=== PATIENT | male | born 1975 | race Hispanic/Latino ===

== ENCOUNTER 2020-05-08 14:47 | Emergency (ER) | payer BC ==
--- OUTSIDE RECORDS SUMMARY | 2020-05-08 16:42 | XMS REPORT | Continuity of Care Document ---
:1975 Author Organization [facility] t Address [address] [place] [address] Care Team Providers Name Role Phone Unavailable Unavailable Unavailable Problems This patient has no known problems. Allergies, Adverse Reactions, Alerts Allergy Allergy Status Severity Reaction(s) Onset Inactive Treating Comm ents Source Name Type Date Date Clinician Aspirin Adverse Active Info Not [facility] Medications Ordered Filled Start Stop Current Ordering Indication Dosage Frequency Signature Comments Components Source Medication Medication Date Date Medication? Clinician (SIG) Name Name Tamiflu Tamiflu Yes Esteban [address] [facility] Azithromyci Azithromyci 2020- No Esteban [address] [facility] 3-06 03-11 [facility] first day, [facility] 00 :00 then 1 l tablet Outpati daily for ent 4 days Clinics Immunizations Ordered Filled Immunization Date Status Comments Sourc e Immunization Name Name TDAP > 7 TDAP > 7 2019-10-[address] [facility] - Years-Adacel Years-Adacel 00:00:00 [facility] Procedures This patient has no known procedures. Encounters Start End Encounter Admission Attending Care Care Encounter Source Date/Time Date/Time Type Type Clinicians Facility Department ID 2020-05-07 2020-05-07 Outpatient [facility] [id number] [facility] 2020-05-07 2020-05-07 Outpatient [facility] [id number] [facility] Clinics 2020-02-14 2020-02-14 [facility] [id number] [facility] 15[facility] 15[facility]00[facility]00 [facility] 2019-11-06 2019-11-06 [facility] [id number] 15[facility]15[facility]00 15:15:00 [facility] 2019-10-23 2019-10-23 [facility] [id number] 15:30[facility]00 15:30:00 [facility] 2019-09-21 2019-09-21 [facility] [id number] 10:15[facility]00 10:15:00 [facility] Results This patient has no known results.
--- OUTSIDE RECORDS SUMMARY | 2020-05-08 16:42 | XMS REPORT ---
:1975 Author Organization [facility] Address [address] [place] [address] Care Team Providers Name Role Phone Henry Unavailable [phone] PROBLEMS Type Condition ICD9-CM COA53-DN Onset Condition SNOMED Code Notes Code Code Dates Status Problem Mixed E78.2 Active 626520440 hyperlipidemia ALLERGIES Allergen (clinical drug Drug/Non Drug Allergy Reaction Allergy Type Onset Date Status ingredient) documented on EMR aspirin Aspirin([facility][NOTE 2] Unknown Drug Allergy Active Code:[address]-94) ENCOUNTERS from 1975 to 2020-05-07 Encounter Location Date Provider Diagnosis [address] [facility] [address], [place] [address] IMMUNIZATIONS Vaccine Route Administration Date Status Adacel (Tdap) IM Intramuscular October 23, 2019 Administered Kenalog (Triamcinolone) IM Intramuscular September 21, 2019 Adminis tered SOCIAL HISTORY Tobacco Use: Social History Observation Description Date Details (start date - stop date) Never Smoker Sex Assigned At : Social History Observation Description Sex Assigned At Unknown Alcohol Screen Question Answer Notes Did you have a drink containing alcohol in the past Yes year? Points 1 Interpretation Negative How often did you have a drink containing alcohol in Monthly or less (1 point) the past year? Tobacco Use/Smoking Question Answer Notes Are you a never smoker REASON FOR REFERRAL No Information VITAL SIGNS No information MEDICATIONS No Information PROCEDURES No Information RESULTS No Results REASON FOR VISIT Sick MEDICAL (GENERAL) HISTORY Type Description Date Surgical History No Surgical history information Goals Section No Information Health Concerns No Information MEDICAL EQUIPMENT No Information MENTAL STATUS No Information FUNCTIONAL STATUS No Information ASSESSMENTS No Information PLAN OF TREATMENT Next Appt Details Provider Name:Esteban Henry, 2020-05-08 0 9:45:00 AM, [address], [place], [address], Provider Name:Esteban Henry, 2020-05-15 0 3:00:00 PM, [address], [place], [address], Insurance Providers Payer Name Payer Payer Insured Name Patient Coverage Covera End Address Phone Relationship to Start Date Davis e Insured [employer] [phone] David Smith self 2019 and Blue [id number] [address] [place] [id number]
--- OUTSIDE RECORDS SUMMARY | 2020-05-08 16:42 | XMS REPORT ---
:1975 Author Organization [facility] Address [address], [address] [place] [address] Care Team Providers Name Role Phone Henry Unavailable [phone] PROBLEMS Type Condition ICD9-CM MDX29-OD Onset Condition SNOMED Code Notes Code Code Dates Status Problem Mixed E78.2 Active [id number] hyperlipidemia ALLERGIES Allergen (clinical drug Drug/Non Drug Allergy Reaction Allergy Type Onset Date Status ingredient) documented on EMR aspirin Aspirin([facility] Unknown Drug Allergy Active Code:[address]-28) ENCOUNTERS from 1975 to 2020-05-07 Encounter Location Date Provider Diagnosis [facility] [address] [facility] Apr, [facility] Henry Maggie rrhea, unspecified Family Medicine [address], type R1 9.7 ; [place] [address] unspecified fe daisha cause R50.9 and Generalized abd ominal pain R10.84 IMMUNIZATIONS Vaccine Route Administration Date Status Adacel [...] REASON FOR REFERRAL No Information VITAL SIGNS Height 71 in Apr, Weight 225 lbs Apr, BMI 31.38 kg/m2 Apr, MEDICATIONS No Information PROCEDURES No Information RESULTS No Results REASON FOR VISIT stomach pain, fever, and diarrhea MEDICAL (GENERAL) HISTORY Type Description Date Surgical History No Surgical history information Goals Section No Information Health Concerns No Information MEDICAL EQUIPMENT No Information MENTAL STATUS No Information FUNCTIONAL STATUS No Information ASSESSMENTS Encounter Date Diagnosis Notes Apr, Generalized abdominal pain (ICD-10 - R10 .84) Apr, Fever, unspecified fever cause (ICD-10 - R50.9) Apr, Diarrhea, unspecified type (ICD-10 - R19 .7) PLAN OF TREATMENT Treatment Notes Assessment Notes Clinical Notes Diarrhea, unspecified type Discussed differential diagnosis with patient. Education given. Discussed supportive measures for symptomatic relief. Advance diet as tolerated. Using nnuh-nur-eolvxia medication. Tolerating well. Denies any bloody stool. Strongly encouraged to increase hydration and electrolytes. Fever, unspecified fever cause . Discussed differential maggie gnosis with patient. Education given. Discussed supportive measures for symptomatic relief. Okay to use cowa-ldy-cuctgkj medication. Monitor temperature. Improving overall. Generalized abdominal pain . Discussed differential diagnos is with patient peer education given. Improving gradually Next Appt Details prn Reason: Provider Name:Esteban Carl 2020-05-08 0 9:45:00 AM, [address], [place], [address], Provider Name:Esteban Henry 2020-05-15 0 3:00:00 PM, [address], [place], [address], Insurance Providers Payer Name Payer Payer Insured Name Patient Coverage Covera End Address Phone Relationship to Start Date Davis e Insured [employer] [phone] David Smith self 2019 and Blue [id number] [address] [place] [id number]
--- OUTSIDE RECORDS SUMMARY | 2020-05-08 16:42 | XMS REPORT ---
:1975 Author Organization [employer] Care Team Providers Name Role Phone Henry, [facility] Provider Role Unavailable Allergies, Adverse Reactions, Alerts Substance Reaction Event Type Aspirin Info Not Available Drug Allergy Problems Problem Type Condition Code Onset Dates Condition Statu s Assessment Prediabetes R73.03 Active Problem Mixed hyperlipidemia E78.2 Active Assessment Nonintractable headache, unspecified R51 Active chronicity pattern, unspecified headache type Assessment Mixed hyperlipidemia E78.2 Active Assessment Elevated LFTs R79.89 Active Medications No Known Medications Results No Known Results Summary Purpose [employer] Submission
[2020-05-08] MEDS ORDERED: NA CHLORIDE 0.9% 1,000 ML ONE (18:21)
[2020-05-08] MEDS ORDERED: ACETAMINOPHEN 500 MG TAB ONE (18:28)
--- NOTE | 2020-05-08 19:13 | RAD REPORT ---
EXAM DESCRIPTION: CTAbdomen Pelvis W Contrast - 05/08/2020 7:00 pm CLINICAL HISTORY: Abdominal pain. abdominal pain, diarrhea COMPARISON: No comparisons TECHNIQUE: Biphasic CT imaging of the abdomen and pelvis was performed with 100 ml non-ionic IV cont rast. All CT scans are performed using dose optimization technique as appropriate and may include automated exposure control or mA/KV adjustment according to patient size. FINDINGS: The lung bases are clear. The liver, spleen, pancreas, adrenal glands and kidneys are within normal limits. No bowel obstruction, free air, free fluid or abscess. Inflammation is seen around the colon particul juwan the descending colon rectosigmoid colon. The appendix is normal. Small fat containing. No eviden ce of significant lymphadenopathy. No suspicious bony findings. IMPRESSION: Mild colitis is seen involving predominately the descending colon and rectosigmoid colon .
--- NOTE | 2020-05-08 19:21 | EDPHYS ---
Physician Documentation [facility] Name: Bladimir Smith Age: 45 yrs Sex: Male : 1975 Arrival Date: 05/08/2020 Time: 14:50 Bed 17 Private MD: ED Physician Papo Rubio HPI: 05/08 17:04 This 45 yrs old Male presents to ER via Ambulatory with complaints of jmm Abdominal Pain. 17:04 The patient presents with abdominal pain in the lower abdomen. Onset: The jmm symptoms/episode began/occurred gradually, 2 day(s) ago. The symptoms do not radiate. Associated signs and symptoms: Pertinent positives: diarrhea. The symptoms are described as crampy. This is a 45 year old male with no chronic medical conditions that presents to the ED with complaints of abdominal pain and multiple episodes of bloody watery diarrhea. Denies recent abx use, denies recent travel, denies infectious exposure. . Historical: - Allergies: 14:58 Aspirin; hb - Home Meds: 14:58 None [Active]; hb - PMHx: 14:58 None; hb - PSHx: 14:58 None; hb - Immunization history:: Adult Immunizations up to date. - Social history:: Smoking status: Patient denies any tobacco usage or history of. ROS: 17:04 Constitutional: Negative for fever, chills, and weight loss, Cardiovascular: Negative jmm for chest pain, palpitations, and edema, Respiratory: Negative for shortness of breath, cough, wheezing, and pleuritic chest pain. 17:04 Abdomen/GI: Positive for abdominal pain, diarrhea. 17:04 All other systems are negative. Exam: 17:04 Constitutional: This is a well developed, well nourished patient who is awake, alert, jmm and in no acute distress. Head/Face: atraumatic. Eyes: EOMI, no conjunctival erythema appreciated ENT: Moist Mucus Membranes Neck: Trachea midline, Supple Chest/axilla: Normal chest wall appearance and motion. Cardiovascular: Regular rate and rhythm. No edema appreciated Respiratory: Normal respirations, no respiratory distress appreciated Abdomen/GI: Non distended, soft Back: Normal ROM Skin: General appearance color normal MS/ Extremity: Moves all extremities, no obvious deformities appreciated, no edema noted to the lower extremities Neuro: Awake and alert, normal gait Psych: Behavior is normal, Mood is normal, Patient is cooperative and pleasant Vital Signs: 14:56 BP 170 / 91; Pulse 82; Resp 16; Temp 99; Pulse Ox 100% on R/A; Weight 102.06 kg; Height hb 5 ft. 11 in. (180.34 cm); Pain 7/10; 17:55 BP 98 / 77; Pulse 84; Resp 16; Temp 102.6(O); Pulse Ox 97% on R/A; mh5 18:52 BP 128 / 84; Pulse 81; Resp 16; Pulse Ox 98% ; bp 20:11 Temp 99.7(TE); dm5 14:56 Body Mass Index 31.38 (102.06 kg, 180.34 cm) hb MDM: 16:50 Patient medically screened. [facility] 19:19 Data reviewed: vital signs, nurses notes. Counseling: I had a detailed discussion with blu the patient and/or guardian regarding: the historical points, exam findings, and any diagnostic results supporting the discharge/admit diagnosis, lab results, radiology results, the need for outpatient follow up, to return to the emergency department if symptoms worsen or persist or if there are any questions or concerns that arise at home. ED course: Patient is alert and non toxic in appearance in the ED. Patient is advised to follow up with pcp and otherwise given strict return precautions. Patient understood and agrees with the plan of care. . 05/08 17:04 Order name: Basic Metabolic Panel; Complete Time: 09:16 [facility] 05/08 17:04 Order name: CBC with Diff; Complete Time: 09:16 [facility] 05/08 17:04 Order name: Hepatic Function; Complete Time: 09:16 [facility] 05/08 17:04 Order name: Lipase; Complete Time: 09:16 [facility] 05/08 17:44 Order name: Stool Culture bp 05/08 17:04 Order name: IV Saline Lock; Complete Time: 17:44 [facility] 05/08 17:04 Order name: CT Abd/Pelvis - IV Contrast Only; Complete Time: 19:18 [facility] 05/08 17:44 Order name: Fecal Leukocyte Stain; Complete Time: 09:16 bp 05/08 17:04 Order name: Labs collected and sent; Complete Time: 17:44 [facility] 05/08 18:56 Order name: Labs - recollect needed; Complete Time: :22 aa5 Administered Medications: 17:30 Drug: NS 0.9% 1000 ml Route: IV; Rate: 1 bolus; Site: right forearm; bp 18:15 Drug: Tylenol 1000 mg Route: PO; bp 18:19 CANCELLED (Duplicate Order): Tylenol 1000 mg PO once bp 19:30 Drug: Cipro 500 mg Route: PO; dm5 20:15 Follow up: Response: No adverse reaction; No change in condition dm5 19:30 Drug: Flagyl 500 mg Route: PO; dm5 20:16 Follow up: Response: No adverse reaction; No change in condition dm5 Disposition: 05/09 14:33 Co-signature as Attending Physician, Papo Rubio MD I agree with the assessment and kdr plan of care. Disposition: 05/08/20 19:20 Discharged to Home. Impression: Acute Colitis. - Condition is Stable. - Discharge Instructions: Colitis. - Prescriptions for Flagyl 500 mg Oral Tablet - take 1 tablet by ORAL route every 8 hours for 10 days; 30 tablet. Cipro 500 mg Oral Tablet - take 1 tablet by ORAL route every 12 hours for 7 days; 20 tablet. - Medication Reconciliation Form, Thank You Letter, Antibiotic Education, Prescription Opioid Use form. - Follow up: Private Physician; When: 2 - 3 days; Reason: Recheck today's complaints, Continuance of care, Re-evaluation by your physician. Signatures: Dispatcher [employer] Ellen Cruz, RN RN dm5 Papo Rubio MD MD kdr Mickail, Joel, PA PA jmm Julisa Dempsey, RN RN aa5 Paco Byrne NP [employer] pm1 Irish Willis, RN RN Willy Storm RN RN bp Corrections: (The following items were deleted from the chart) 05/08 18:19 18:19 Tylenol 1000 mg PO once ordered. bp bp 19:58 19:20 05/08/2020 19:20 Discharged to Home. Impression: Acute Colitis. Condition is dm5 Stable. Forms are Medication Reconciliation Form, Thank You Letter, Antibiotic Education, Prescription Opioid Use. Follow up: Private Physician; When: 2 - 3 days; Reason: Recheck today's complaints, Continuance of care, Re-evaluation by your physician. blu
--- NOTE | 2020-05-08 19:21 | ER ---
Nurse's Notes [facility] Name: Bladimir Smith Age: 45 yrs Sex: Male : 1975 Arrival Date: 05/08/2020 Time: 14:50 Bed 17 Private MD: Diagnosis: Acute Colitis Presentation: 05/08 14:56 Chief complaint: Lower abdominal pain, fever, and diarrhea x 2 days, blood in stool hb today. TMAX 101. Coronavirus screen: diarrhea, fever, Client presents with at least one sign or symptom that may indicate coronavirus-19. Standard/surgical mask placed on the client. Provider contacted for isolation considerations. Ebola Screen: No symptoms or risks identified at this time. Initial Sepsis Screen: Does the patient meet any 2 criteria? No. Patient's initial sepsis screen is negative. Does the patient have a suspected source of infection? No. Patient's initial sepsis screen is negative. Risk Assessment: Do you want to hurt yourself or someone else? Patient reports no desire to harm self or others. Onset of symptoms was May 06, 2020. 14:56 Method Of Arrival: Ambulatory hb 14:56 Acuity: DOROTHEA 3 hb Triage Assessment: 16:45 General: Appears in no apparent distress. uncomfortable, Behavior is cooperative, bp appropriate for age, anxious. Pain: Complains of pain in abdomen. EENT: No deficits noted. Neuro: No deficits noted. Cardiovascular: No deficits noted. Respiratory: No deficits noted. GI: Reports rectal bleeding, nausea, vomiting. : No signs and/or symptoms were reported regarding the genitourinary system. Derm: No deficits noted. Musculoskeletal: No deficits noted. Historical: - Allergies: 14:58 Aspirin; hb - Home Meds: 14:58 None [Active]; hb - PMHx: 14:58 None; hb - PSHx: 14:58 None; hb - Immunization history:: Adult Immunizations up to date. - Social history:: Smoking status: Patient denies any tobacco usage or history of. Screenin:45 Abuse screen: Denies threats or abuse. Denies injuries from another. Nutritional bp screening: No deficits noted. Tuberculosis screening: No symptoms or risk factors identified. Fall Risk None identified. Assessment: 16:45 General: SEE TRIAGE NOTE. bp 17:45 Reassessment: No changes from previously documented assessment. Patient and/or family bp updated on plan of care and expected duration. Pain level reassessed. Patient is alert, oriented x 3, equal unlabored respirations, skin warm/dry/pink. PIV PLACED. LABS IN PROCESS. GI: Bowel sounds present X 4 quads. Abd is soft X 4 quads Reports diarrhea. 18:50 Reassessment: Patient appears in no apparent distress at this time. No changes from bp previously documented assessment. CT PENDING. NO CHANGE IN S/S. 19:08 Reassessment: PT RETURNED FROM CT. PT CONTINUES TO AFFIRM DIARRHEA. bp 19:10 Reassessment: Patient appears in no apparent distress at this time. No changes from dm5 previously documented assessment. Patient and/or family updated on plan of care and expected duration. Pain level reassessed. Patient is alert, oriented x 3, equal unlabored respirations, skin warm/dry/pink. Vital Signs: 14:56 BP 170 / 91; Pulse 82; Resp 16; Temp 99; Pulse Ox 100% on R/A; Weight 102.06 kg; Height hb 5 ft. 11 in. (180.34 cm); Pain 7/10; 17:55 BP 98 / 77; Pulse 84; Resp 16; Temp 102.6(O); Pulse Ox 97% on R/A; mh5 18:52 BP 128 / 84; Pulse 81; Resp 16; Pulse Ox 98% ; bp 20:11 Temp 99.7(TE); dm5 14:56 Body Mass Index 31.38 (102.06 kg, 180.34 cm) hb ED Course: 14:50 Patient arrived in ED. ag5 14:57 Triage completed. hb 14:58 Arm band placed on. hb 16:45 Rivas Benavides PA is PHCP. jmm 16:45 Papo Rubio MD is Attending Physician. jmm 16:45 Willy Storm, PIETRO is Primary Nurse. bp 16:45 Patient has correct armband on for positive identification. Bed in low position. Call bp light in reach. Side rails up X2. 17:50 Inserted saline lock: 20 gauge in right forearm, using aseptic technique. Blood bp collected. 17:52 Stool Culture Sent. [facility] 17:52 Ova And Parasites Sent. [facility] 17:52 Fecal Leukocyte Stain Sent. 5 17:52 Basic Metabolic Panel Sent. 5 17:52 CBC with Diff Sent. mh5 17:53 Hepatic Function Sent. mh5 17:53 Lipase Sent. mh5 17:54 Pulse ox on. NIBP on. mh5 19:00 CT Abd/Pelvis - IV Contrast Only In Process Unspecified. EDMS 20:15 Report received from Willy Storm RN. dm5 Administered Medications: 17:30 Drug: NS 0.9% 1000 ml Route: IV; Rate: 1 bolus; Site: right forearm; bp 18:15 Drug: Tylenol 1000 mg Route: PO; bp 18:19 CANCELLED (Duplicate Order): Tylenol 1000 mg PO once bp 19:30 Drug: Cipro 500 mg Route: PO; dm5 20:15 Follow up: Response: No adverse reaction; No change in condition dm5 19:30 Drug: Flagyl 500 mg Route: PO; dm5 20:16 Follow up: Response: No adverse reaction; No change in condition dm5 Outcome: 19:20 Discharge ordered by . [facility] 19:58 Patient left the ED. dm5 Addendum: 05/12/2020 08:02 Addendum: Culture Results: Positive stool culture. Phone call Attempt #1 left voicemail.a a5 08:25 Addendum: Culture Results: Phone call Attempt #2 Pt called back to the ER and states "I a a5 really haven't gotten better". Pt reports he is to follow-up with Dr. Henry today and results were faxed to Dr. Henry at 0818 (spoke to Seema, salon receptionist). Signatures: Dispatcher [employer] Ellen Cruz, RN RN 5 Rivas Benavides PA PA jmm Calderon, Audri, RN RN 5 Irish Willis, Stephanie Kimball RN [facility] Willy Storm RN RN bp [place], Ajare [facility]
[2020-05-08] MEDS ORDERED: metroNIDAZOLE 500 MG TABLET ONE (19:37)
[2020-05-08] MEDS ORDERED: CIPROFLOXACIN HCL 500 MG TAB ONE (19:38)
[2020-05-08 19:43] LABS: Absolute Lymphocytes (CBC) 0.8 K/uL (0.7-4.9); Basophils % 0.3 % (0-1.3); Hematocrit 40.2 % (39.6-49.0); Lymphocytes % 14.9 % (15.3-44.8); MPV 8.5 fL (7.6-11.3); RBC Red Blood Cell Count 4.47 M/uL (4.33-5.43)
[2020-05-08 20:05] LABS: Albumin 3.3 g/dL (3.4-5.0); Bilirubin Direct 0.1 mg/dL (0-0.2); Bilirubin Total 0.3 mg/dL (0.2-1.0); Potassium 3.8 mmol/L (3.5-5.1); Protein, Total 7.2 g/dL (6.4-8.2)
[2020-05-08 20:59] VITALS: TEMP 102.6
[2020-05-08 21:02] VITALS: BP 128/84; O2SAT 98
== END 2020-05-08 19:58 | disposition home or self-care (01) ==
LOC: ER 14:47
DX: K52.9 Noninfective gastroenteritis and colitis, unspecified (principal); Z88.6 Allergy status to analgesic agent
CPT/HCPCS: 87045; 85025; 80048; 36415; 89055; 82565; 80076; 87046; 87077; 87186; 83690; 74177; 99284; Q9967; J7030